=== PATIENT | female | born 1980 | race Hispanic/Latino ===

== ENCOUNTER 2018-03-21 08:01 | Day surgery (SDC) | payer OTHER ==
[2018-03-21] MEDS ORDERED: CEFAZOLIN/SWI 1gm 1 GM/10 ML SYR ONE (08:14)
[2018-03-21] MEDS ORDERED: Ringers Lactate 1,000 ML IV ONE (08:14)
[2018-03-21 08:26] VITALS: O2SAT 100
[2018-03-21] MEDS ORDERED: PROPOFOL 200 MG/20 ML VIAL IV ONE (08:52)
[2018-03-21] MEDS ORDERED: BUPIVACA 0.25%/EPI 0.0005%/PF 30 ML VIAL ONE (08:53)
[2018-03-21] MEDS ORDERED: ONDANSETRON 4 MG/2 ML VIAL ONE (08:53)
[2018-03-21] MEDS ORDERED: FENTANYL CITR 100 MCG/2 ML ONE (08:53)
[2018-03-21] MEDS ORDERED: MIDAZOLAM HCL 2 MG/2 ML INJ ONE (08:53)
[2018-03-21] MEDS ORDERED: LIDOCAINE 2% MPF 5 ML VIAL ONE (08:53)
--- NOTE | 2018-03-21 09:20 | P.OP ---
Preoperative diagnosis: LEFT lateral foot cyst Postoperative diagnosis: LEFT lateral foot cyst Primary procedure: Excision of LEFT lateral foot cyst Anesthesia: GETA + Local Estimated blood loss: <2cc Specimen: LEFT lateral foot cyst Findings: 1 cm x 1cm cyst of left lateral foot Complications: None Transferred to: Recovery Room Condition: Good
[2018-03-21 10:15] VITALS: TEMP 97.9
[2018-03-21 10:29] VITALS: BP 16/54
--- NOTE | 2018-03-21 11:16 | OP ---
Date of Procedure: 03/21/2018 Surgeon: Salinas Hernandez MD, Preoperative Diagnosis: Left lateral foot cyst. Postoperative Diagnosis: Left lateral foot cyst. Procedure Performed: Excision of left lateral foot cyst. Anesthesia: General endotracheal plus local with 0.25% Marcaine with epinephrine. Estimated Blood Loss: Less than 2 cc. Specimen: Left lateral foot cyst. Findings: 1 cm x 1 cm cyst of the left lateral foot. Complications: None. Disposition: Transferred to recovery room in good condition. Procedure In Detail: After informed consent was obtained, the patient was brought to the operating r oom, prepped and draped in a sterile fashion. After adequate anesthesia was achieved, approximately 1.5 cm incision was made over the left lateral foot to expose approximately 1 cm cyst, it was slightl y oval. Electrocautery was used to dissect around and achieve hemostasis. Then, blunt and sharp dis section were used to excise the cyst, which appeared to be possibly enlarged lymph node. This was se nt off for pathologic examination after electrocautery was used on the proximal and distal side of th e feeding vessels to this structure with good hemostasis. The area was then copiously irrigated and closed with a 4-0 Monocryl in a running fashion, Dermabond was placed over the top. The patient tole rated the procedure well without evidence of complication and transferred to PACU in good condition. All count s were correct at the case. RONALD/UYEN Voice ID: [id number] Report ID: [id number]
== END 2018-03-21 10:32 | disposition home or self-care (01) ==
LOC: OR 08:01
PROVIDERS: ATTEND Surgery
PROC: 0JBR0ZZ Excision of Left Foot Subcutaneous Tissue and Fascia, Open Approach (ICD-10-PCS; principal; 2018-03-21 09:00)
DX: M67.472 Ganglion, left ankle and foot (principal); E03.9 Hypothyroidism, unspecified
CPT/HCPCS: 88305; J0690; J2250; J2405; J3010